=== PATIENT | female | born 1950 | race Caucasian/White ===

== ENCOUNTER 2017-03-16 03:06 | Inpatient (IN) ==
[2017-03-10 13:26] LABS: MANUAL DIFF NEEDED? NO; URINE MICRO REVIEW NEEDED? NO; URINE SOURCE CLEAN CATCH
[2017-03-10 14:29] LABS: BASO% 0.6 % (0.0-0.8); EOS# 0.09 X1000 (0.0-0.7); EOS% 1.1 % (0.0-10.0); HEMATOCRIT 39.5 % (37.0-47.0); LYMPH# 1.87 X1000 (1.2-3.4); LYMPH% 23.9 % (20.5-51.1); MCH 30.5 PG (27-31); MCHC 32.9 g/dL (33-37); MCV 92.7 FL (81-99); MONO# 0.79 X1000 (0.11-0.59); MONO% 10.1 % (1.7-9.3); MPV 11.3 FL (7.4-10.4); NEUT% 64.3 % (42.2-75.2); PLT 257 X1000 (130-400); RBC 4.26 XMIL (4.2-5.4)
[2017-03-10 14:32] LABS: BILIRUBIN URINE NEGATIVE (NEGATIVE); BLOOD URINE NEGATIVE (NEGATIVE); COLOR YELLOW; GLUCOSE URINE NEGATIVE (NEGATIVE); LEUKOCYTES URINE NEGATIVE (NEGATIVE); NITRITE URINE NEGATIVE (NEGATIVE); PH URINE 5.5; PROTEIN URINE NEGATIVE (NEGATIVE); SP GRAVITY URINE 1.012; TURBIDITY URINE CLEAR (CLEAR); UROBILINOGEN URINE NORMAL (NORMAL)
[2017-03-10 14:33] LABS: UR EPITHELIAL CELLS <10 /HPF (<10); URINE BACTERIA NEGATIVE /HPF; URINE RBC <10 /HPF (<10); URINE WBC <10 /HPF (<10)
[2017-03-10 14:41] LABS: INR 0.98; PROTIME 10.3 Seconds (9.2-11.7); PTT 25.2 Seconds (22.0-36.0)
[2017-03-10 15:27] LABS: AGAP 14; BUN 30 mg/dL (8-22); CALCIUM 9.5 mg/dL (8.8-10.2); CHLORIDE 103 mmol/L (98-107); COSMO 291; SODIUM 143 mmol/L (136-145); TCO2 26 mmol/L (25-35)
[2017-03-16] MEDS ORDERED: NORCO-10 PO PRN (07:02)
[2017-03-16] MEDS ORDERED: MORPHINE IV PRN (07:03)
[2017-03-16] MEDS ORDERED: REGLAN ONE (07:06)
[2017-03-16] MEDS ORDERED: COLACE ONE (07:06)
[2017-03-16] MEDS ORDERED: LYRICA ONE (07:06)
[2017-03-16] MEDS ORDERED: PEPCID ONE (07:06)
[2017-03-16] MEDS ORDERED: LR 1,000 ML ONE ×2 (07:07→11:21)
[2017-03-16] MEDS ORDERED: KEFZOL 2 GM/D5W 2 GM/50 ML IVPB ONE (07:07)
[2017-03-16] MEDS ORDERED: CELEBREX ONE (07:07)
[2017-03-16] MEDS ORDERED: FENTANYL ONE ×2 (08:14→08:40)
[2017-03-16] MEDS ORDERED: VERSED ONE ×2 (08:14→08:40)
[2017-03-16] MEDS ORDERED: DIPRIVAN 1% ONE (08:14)
[2017-03-16] MEDS ORDERED: DIPRIVAN 1% 0 MG/0 ML BOTTLE ONE ×2 (08:15→08:41)
[2017-03-16] MEDS ORDERED: CYKLOKAPRON 1,000 MG/NS 0 MG/0 ML IVPB ONE ×2 (08:20→08:21)
[2017-03-16] MEDS ORDERED: MARCAINE 0.25% PF/EPI 1:200,000 ONE (08:20)
[2017-03-16] MEDS ORDERED: TORADOL ONE (08:20)
[2017-03-16] MEDS ORDERED: SODIUM CHLORIDE 0.9% ONE (08:20)
[2017-03-16] MEDS ORDERED: NEOSPORIN G.U. IRRIGANT ONE (08:21)
[2017-03-16] MEDS ORDERED: EXPAREL 1.3% ONE (08:21)
--- NOTE | 2017-03-16 08:28 | HISTORY AND PHYSICAL ---
CHIEF COMPLAINT: Left knee pain. HISTORY OF PRESENT ILLNESS: Ms. Erazo is a 66-year-old white female with a history of left knee pain for several years now. About 3 years ago, she had her right knee replaced and, now she is returning to have the left knee replaced. Radiographic images obtained of the left knee reveal images consistent with advanced degenerative joint disease. PAST MEDICAL HISTORY: 1. Hypertension. 2. Cholesterol. 3. Acid reflux. 4. Degenerative joint disease. 5. History of breast cancer on the right side. 6. Diabetes mellitus. PAST SURGICAL HISTORY: 1. Bilateral cataract surgery. 2. Cholecystectomy. 3. Right lumpectomy. 4. Right total knee arthroplasty. 5. BMT. FAMILY HISTORY: Noncontributory. SOCIAL HISTORY: The patient is . She denies using tobacco. She denies using alcohol. CURRENT HOME MEDICATIONS: 1. Ocuvite tablet 1 p.o. daily. 2. Prilosec 40 mg p.o. daily. 3. Singulair 10 mg p.o. daily. 4. Meloxicam 7.5 mg p.o. daily. 5. Enalapril/hydrochlorothiazide 10/25 mg tablet 1 p.o. daily. 6. Lipitor 20 mg p.o. at bedtime. 7. Synthroid 75 mcg p.o. daily. 8. Xyzal 5 mg p.o. at bedtime. 9. Flonase 1 spray each nostril daily. 10. Sennosides/docusate sodium 2 p.o. at bedtime. 11. Calcium 600+ D3 one p.o. daily. ALLERGIES: Simvastatin. PRIMARY CARE PROVIDER: Dr. Perry Durham. REVIEW OF SYSTEMS: HEENT: The patient reports having reading glasses. She denies any other HEENT problems. Cardiac: The patient denies any chest pain, shortness of breath, or any history of syncope. Pulmonary: The patient denies any coughing, wheezing, or hemoptysis. Gastrointestinal: The patient reports chronic constipation. She denies any nausea, vomiting, diarrhea. Genitourinary: The patient denies any genitourinary problems. Neurological: The patient denies any numbness, tingling, or neurological deficits. Musculoskeletal: The patient reports having left knee pain all the time, as well as having some right hip bursitis. PHYSICAL EXAMINATION: GENERAL: The patient is awake, sitting up in bed. She is articulate and able to answer questions appropriately. HEENT: Head is normocephalic, atraumatic. Pupils equal, round, react to light. Nares patent. Throat without exudate. CARDIAC: S1-S2 auscultated. No murmur, rub, or gallop noted. LUNGS: Clear to auscultation bilaterally in all lung melendez. ABDOMEN: Soft, nontender, nondistended. Bowel sounds present in all quadrants. GENITOURINARY: Not examined. NEUROLOGICAL: The patient has good sensation to dull touch in all extremities. Cranial nerves 2-12 are grossly intact. MUSCULOSKELETAL: Physical examination of the left knee reveals pain with passive range of motion, as well as pain with palpation. IMPRESSION: Degenerative joint disease of the left knee. PLAN: Left total knee arthroplasty. The risks, benefits, and alternatives of the surgery were discussed with the patient including risk of anesthesia, bleeding, infection, damage to blood vessels, nerves, tendons, ligaments, and other imponderables were discussed. The patient agrees to proceed with surgery at this time. Dictated by ERNESTINA Ngo for Gage Agrawal MD cc: ERNESTINA Ngo MD
[2017-03-16] MEDS ORDERED: VANCOMYCIN ONE (08:33)
[2017-03-16] MEDS ORDERED: CYKLOKAPRON 1,000 MG/NS 1,000 MG/100 ML IVPB ONE ×2 (08:42→08:43)
[2017-03-16 09:48] LABS: URINE MICRO REVIEW NEEDED? NO; URINE SOURCE CATH
[2017-03-16 09:52] LABS: BILIRUBIN URINE NEGATIVE (NEGATIVE); BLOOD URINE NEGATIVE (NEGATIVE); COLOR YELLOW; GLUCOSE URINE NEGATIVE (NEGATIVE); LEUKOCYTES URINE NEGATIVE (NEGATIVE); NITRITE URINE NEGATIVE (NEGATIVE); PROTEIN URINE NEGATIVE (NEGATIVE); TURBIDITY URINE CLEAR (CLEAR); UR EPITHELIAL CELLS <10 /HPF (<10); URINE BACTERIA NEGATIVE /HPF; URINE RBC <10 /HPF (<10); URINE WBC <10 /HPF (<10); UROBILINOGEN URINE NORMAL (NORMAL)
[2017-03-16] MEDS ORDERED: NS 1,000 ML ONE (11:07)
[2017-03-16] MEDS ORDERED: XYLOCAINE-MPF 2% ONE (11:21)
[2017-03-16] MEDS ORDERED: ZOFRAN ONE (11:21)
[2017-03-16] MEDS ORDERED: OFIRMEV 1000 MG/ISOTONIC SOLN 1,000 MG/100 ML BOTTLE ONE (11:21)
[2017-03-16] MEDS ORDERED: DECADRON ONE (11:21)
[2017-03-16] MEDS ORDERED: PIGGYBACK SET 7393 ONE (11:21)
--- NOTE | 2017-03-16 12:37 | Diag Imaging Result Doc PS360 ---
KNEE 1-2 VIEWS-LEFT - 03/16/2017 1:00 PM TOTAL KNEE ARTHROPLASTY COMPARISON: None FINDINGS: There has been left total knee arthroplasty. Alignment is anatomic. No hardware fracture or loosening. IMPRESSION: No evidence of complication. Electronically signed by Shane Dobbs 03/16/2017 12:35 PM
--- NOTE | 2017-03-16 13:00 | OPERATIVE NOTE ---
PROCEDURE DATE: 03/16/2017 PREOPERATIVE DIAGNOSIS: Degenerative joint disease, left knee. POSTOPERATIVE DIAGNOSIS: Degenerative joint disease, left knee. PROCEDURE PERFORMED: Left knee replacement. SURGEON: Maricruz Agrawal MD. ONCOLOGY COORDINATOR: ERNESTINA Ngo ANESTHESIA: Spinal. COMPLICATIONS: None. PROCEDURE IN DETAIL: This 66-year-old female presents for left knee replacement. Risks, benefits, and no guarantees were discussed, and she is willing to proceed. She was taken to the operating room, where satisfactory anesthesia was obtained. The left knee was prepped and draped in the usual sterile fashion. A time-out was taken to confirm operative site, procedure, and patient. The leg was wrapped with an Esmarch and the tourniquet inflated to 350 mmHg. A midline incision was made over the front of the knee, followed by a quadriceps tendon-sparing arthrotomy. The patella was everted and resurfaced with freehand technique and subluxed laterally. The knee was flexed. An intramedullary hole was made in the distal femur and the distal femoral cutting block secured in 5 degrees of valgus. Femoral resection was then made and the femur sized to a size 5 Tipjoyuy biNu component. The 4-in-1 block was secured and the anterior, posterior, and chamfer cuts sequentially made. A notch was created for posterior stabilized design. Any remaining osteophytes were debrided about the femur and the knee was flexed and a PCL retractor placed behind the tibia to protect the neurovascular bundle. The tibial cutting block was secured with extramedullary alignment and tibial flexion-extension gaps checked and noted to be roughly equal. The tibia was sized to a size 5 tibial tray. Trial reduction was performed with an 8 mm poly spacer and a size 5 component with good range of motion and stability. The patella was sized to a size 35 medialized dome patella. After preparation for the implants, all trial components were removed and the bony surfaces thoroughly irrigated with pulsatile lavage. Cement with a gram of vancomycin was utilized to cement a size 5 rotating platform tibial tray, a size 5 left posterior stabilized regular width femoral component and a 35 medialized dome patella. While the cement cured, excess cement was removed with a [place] elevator. The joint capsule was injected with Exparel for pain management and a Hemovac drain placed. After curing of the cement, an 8 mm size 5 posterior stabilized rotating platform poly was secured in to the tibial tray and the knee reduced. Final range of motion was assessed with 0-120 degrees of motion with good stability and midline patellar tracking. The arthrotomy was then copiously irrigated with irrigant and closed over the drain with #1 Vicryl in the arthrotomy, 2-0 Vicryl in the subcu, and skin stacy on the skin edges. Sterile dressings completed the closure and the patient was recovered from anesthesia and transferred to the recovery room in stable condition. No intraoperative complications were noted. Instrument count and sponge count was correct at the time of closure. cc: Gage Agrawal MD
[2017-03-16] MEDS ORDERED: NS 1,000 ML IV SCH (15:45)
[2017-03-16] MEDS: KEFZOL 1 GM/D5W 1 GM/50 ML IVPB IV SCH (16:21)
[2017-03-16] MEDS: CALTRATE 600 + D PO SCH (17:01)
[2017-03-16] MEDS: VASOTEC PO SCH (17:01)
[2017-03-16] MEDS: SINGULAIR PO SCH (17:02)
[2017-03-16] MEDS: PRILOSEC PO SCH (17:02)
[2017-03-16] MEDS: CELEBREX PO SCH (17:03)
[2017-03-16] MEDS: OCUVITE LUTEIN & ZEAXANTHIN PO SCH (17:03)
[2017-03-16] MEDS: PERIDEX MT SCH (20:01)
[2017-03-16] MEDS: NORCO-10 PO PRN ×2 (20:03→23:36)
[2017-03-16] MEDS ORDERED: COLACE PO SCH (21:00)
[2017-03-16] MEDS ORDERED: CLARITIN PO SCH (21:00)
[2017-03-16] MEDS ORDERED: LIPITOR PO SCH (21:00)
[2017-03-16] MEDS ORDERED: FLONASE NAS SCH (21:00)
[2017-03-16] MEDS ORDERED: PERICOLACE PO SCH (21:00)
[2017-03-17] MEDS: KEFZOL 1 GM/D5W 1 GM/50 ML IVPB IV SCH (01:30)
[2017-03-17] MEDS: NORCO-10 PO PRN ×2 (04:33→12:54)
[2017-03-17 05:40] LABS: HEMATOCRIT 32.6 % (37.0-47.0); HEMOGLOBIN 10.8 g/dL (12.0-16.0)
[2017-03-17 05:48] LABS: AGAP 11; BUN 25 mg/dL (8-22); CALCIUM 8.7 mg/dL (8.8-10.2); CHLORIDE 105 mmol/L (98-107); COSMO 283; POTASSIUM 3.4 mmol/L (3.5-5.1); SODIUM 140 mmol/L (136-145); TCO2 24 mmol/L (25-35)
[2017-03-17] MEDS ORDERED: XARELTO PO SCH (06:00)
[2017-03-17] MEDS ORDERED: SYNTHROID PO SCH (07:00)
[2017-03-17] MEDS ORDERED: HYDROCHLOROTHIAZIDE PO SCH (09:00)
[2017-03-17] MEDS: SINGULAIR PO SCH (09:59)
[2017-03-17] MEDS: VASOTEC PO SCH (09:59)
[2017-03-17] MEDS: PRILOSEC PO SCH (09:59)
[2017-03-17] MEDS: CALTRATE 600 + D PO SCH (09:59)
[2017-03-17] MEDS: PERIDEX MT SCH (09:59)
[2017-03-17] MEDS: CELEBREX PO SCH (09:59)
[2017-03-17] MEDS: OCUVITE LUTEIN & ZEAXANTHIN PO SCH (09:59)
[2017-03-17 11:27] VITALS: BP 109/54
--- NOTE | 2017-03-18 05:45 | DISCHARGE SUMMARY ---
ADMISSION DATE: 03/16/2017 DISCHARGE DATE: 03/17/2017 ADMITTING DIAGNOSIS: Degenerative joint disease, left knee. ADDITIONAL DIAGNOSES: 1. Hypertension. 2. Hyperlipidemia. 3. Acid reflux. 4. Diabetes mellitus. 5. Breast cancer. DISCHARGE DIAGNOSES: 1. Degenerative joint disease of the left knee. 2. Hypertension. 3. Hyperlipidemia. 4. Acid reflux. 5. Diabetes mellitus. 6. Breast cancer. ADMITTING HISTORY AND HOSPITAL COURSE: Ms. Erazo is a 66-year-old, white female with a history of left knee pain. She was admitted to the hospital yesterday for a left total knee arthroplasty. After her surgery, she remained afebrile. Her vital signs remained stable and she is currently ambulating about 250 feet with a front wheel walker. We plan to discharge her home today, where she will be going to an outpatient physical therapy facility for her therapy. DISCHARGE MEDICATIONS: Ocuvite tablet 1 p.o. daily, Prilosec 40 mg p.o. daily, Singulair 10 mg p.o. daily, enalapril-hydrochlorothiazide 10/25 mg tablet 1 p.o. daily, Lipitor 20 mg p.o. at bedtime, Synthroid 75 mcg p.o. daily, Xyzal 5 mg p.o. at bedtime, Flonase 1 spray in each naris daily, sennosides/docusate sodium 2 p.o. at bedtime, calcium 600 plus D3 1 p.o. daily, [place] 10 1- 2 p.o. q.4-6 hours p.r.n. for pain, as well as Xarelto 10 mg p.o. daily for 14 days. DISCHARGE INSTRUCTIONS: Ms. Erazo is to discharge home where she is going to begin an outpatient physical therapy regimen. Her is going to drive her to therapy. I have discussed with her that she will be leaving the hospital with prescriptions for [place] and Xarelto. I also told her if she has any worsening signs or symptoms or any questions whatsoever to call the office for assistance. She will need to follow with Dr. Agrawal in about 10 days for followup appointment and have her stacy removed, which is going to be about March 31 and if she has any worsening signs or symptoms or any questions, call us at the office. Dictated by ERNESTINA Ngo for Gage Agrawal MD cc: ERNESTINA Ngo MD
== END 2017-03-17 14:36 | disposition home or self-care (01) ==
LOC: SURHOLD 03:06 → 4N 14:44
PROVIDERS: ADMIT Orthopaedic Surgery Adult Reconstructive Orthopaedic Surgery; ATTEND Orthopaedic Surgery Adult Reconstructive Orthopaedic Surgery